=== PATIENT | female | born 1960 | race Caucasian/White ===

== ENCOUNTER → 2017-04-20 | Outpatient (CLI) | payer MEDICARE, MEDICAID ==
[~2017-04-20] MED LIST: ALIGN10.5 MG; ASPIRIN 81MG TA81 MG PO; ATORVASTATIN CA10 MG PO; GOOD SENSE ALLE10 MG; GOOD SENSE400 MG/5 M PO; LEVOTHYROXINE0.05 M3 PO; LINZESS145 MCG PO; METAMUCIL660 GM; METFORMIN 500M500 M1 PO; MIRALAX(PO17 GM/1 PA
[2017-04-20 12:45] LABS: HEMOGLOBIN 13.4 g/dL (12.2-16.2); LYMPH # 1.6 K/mm3 (0.7-4.5); LYMPH % 25.6 % (10-50.0)
[2017-04-20 13:06] LABS: URINE BILIRUBIN - DIPSTICK NEGATIVE (NEG); URINE BLOOD NEGATIVE (NEG)
--- NOTE | 2017-04-20 14:13 | RADIOLOGY REPORT PS360 ---
KUB (SINGLE VIEW) HISTORY: SLOW TRANSIT CONSTIPATION ORDERING PHYSICIAN: Dana Garber APRN PATIENT AGE: 56 years COMPARISON: 12/25/2015 FINDINGS: There is a moderate amount retained colonic feces throughout the colon especially in the rectum. The rectal area measures 9.3 cm transverse consistent with rectal fecal impaction. Surgical clips are present in the right upper quadrant. No acute bony anomalies. There are degenerative changes in the lumbar spine and hips. IMPRESSION: Constipation with rectal fecal impaction.
[2017-04-20 14:22] LABS: URINE SQUAMOUS CELLS OCC #/hpf (0-5)
[2017-04-20 16:25] LABS: BUN 10 mg/dL (7-18)
[2017-04-20 16:45] LABS: GFR (ESTIMATED) 74 ML/MIN (59-)
== END ==
LOC: LAB 12:08
PROVIDERS: Nurse Practitioner Family
DX: R53.81 Other malaise (principal); E11.9 Type 2 diabetes mellitus without complications; E03.9 Hypothyroidism, unspecified; K29.01 Acute gastritis with bleeding; R10.84 Generalized abdominal pain